=== PATIENT | male | born 1950 | race Caucasian/White ===

== ENCOUNTER 2023-10-27 07:36 | Day surgery (SDC) | payer OTHER, MEDICARE ==
[~2023-10-27] VITALS: Ht 177.8 cm; Wt 97.8 kg
[~2023-10-27 07:36] MED LIST: ACETAMINOPHEN 1000MG 100ML IV BAG As Ordered ONE; AMLO1TAB25 PO; COLA100C5 PO; LIDOCAINE 2% 100MG/5ML SDV (FOR ANES.) As Ordered ONE; MULTTAB61 PO; ONDANSETRON 4MG 2ML VIAL As Ordered ONE; TAMS1CAP17 PO; fentaNYL 100 MCG/2 ML INJECTION As Ordered ONE; propofoL 200 MG/20 ML VIAL As Ordered ONE
[2023-10-27] MEDS ORDERED: SUGAMMADEX SODIUM 500 MG/5 ML VIAL (BRIDION) As Ordered ONE (08:34)
[2023-10-27] MEDS ORDERED: ROCURONIUM BROMIDE 50MG/5ML VIAL As Ordered ONE (08:34)
[2023-10-27] MEDS: ceFAZolin SOD 2 GM in IV 1 EA IV ONE (09:00)
[2023-10-27] MEDS: ceFAZolin 2 GM/D5W 50 ML IV BAG As Ordered ONE (09:02)
[2023-10-27] MEDS: ISOVUE-300 61% 100ML VIAL As Ordered ONE (11:00)
[2023-10-27] MEDS ORDERED: ONDANSETRON 4MG 2ML VIAL IV PRN (11:20)
[2023-10-27] MEDS ORDERED: fentaNYL 100 MCG/2 ML INJECTION IV PRN (11:20)
[2023-10-27] MEDS ORDERED: oxyCODONE 5MG TAB PO PRN (11:20)
[2023-10-27] MEDS ORDERED: LR 1,000 ML IV SCH (11:20)
[2023-10-27] MEDS ORDERED: HYDROMORPHONE HCL 0.5 MG/ 0.5 ML SYRINGE IV PRN (11:20)
[2023-10-27 12:15] VITALS: BP 163/91; TEMP 96.3; O2SAT 95
== END 2023-10-27 12:44 | disposition home or self-care (01) ==
LOC: M SDC 07:36
PROVIDERS: ATTEND Urology
DX: N20.0 Calculus of kidney (principal); I10 Essential (primary) hypertension; N40.0 Benign prostatic hyperplasia without lower urinary tract symptoms; Z79.899 Other long term (current) drug therapy
CPT/HCPCS: 52356; 76000; 82365; C1769; C1894; C2617; J0131; J0690; J1100; J2405; J3010; Q9967